=== PATIENT | male | born 1985 | race Caucasian/White ===

== ENCOUNTER 2017-11-01 21:02 | Emergency (ER) | payer OTHER ==
[~2017-11-01] VITALS: Ht 190.5 cm; Wt 102.1 kg
--- NOTE | 2017-11-01 21:23 | PHYS DOC ---
Past Medical History Past Medical History: Hypertension, Other Additional Past Medical Histor: Stent in left ureter Adult General Chief Complaint Chief Complaint: FLANK PAIN HPI HPI Patient is a 32 year old male who presents with left flank pain. Patient complains of left flank pain, fever and chills over the last 48 hours. He also had some nausea and vomiting. He had 2 episodes of emesis today. 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 He had a stent placed originally. The original stent was eventually removed and replaced again after he had an episode of fever and pain on the left. He fears that his symptoms today represent a possible recurrence of new obstructed stent. Review of Systems Review of Systems Constitutional: Denies fever or chills Eyes: Denies change in visual acuity HENT: Denies nasal congestion Respiratory: Denies cough or shortness of breath Cardiovascular: No additional information GI: Denies abdominal pain : Denies dysuria Musculoskeletal: Denies back pain or joint pain Integument: Denies rash or skin lesions Neurologic: Denies headache Endocrine: Denies polyuria All other systems were reviewed and found to be within normal limits, except as documented in this note. Current Medications Current Medications Current Medications Medications (Trade) Dose Ordered Sig/Jeferson Start Time Stop Time Status Last Admin Dose Admin Ceftriaxone Sodium 50 ml @ 100 mls/hr 1X ONCE 11/01/17 22:45 11/01/17 23:14 DC 11/01/17 22:58 100 MLS/HR Morphine Sulfate (Morphine Sulfate) 6 mg 1X ONCE 11/01/17 23:00 11/01/17 23:01 DC 11/01/17 22:58 6 MG Ondansetron HCl (Zofran) 4 mg 1X ONCE 11/01/17 22:15 11/01/17 22:16 DC 11/01/17 22:14 4 MG Sodium Chloride 1,000 ml @ 1,000 mls/hr 1X ONCE 11/01/17 21:30 11/01/17 22:29 DC 11/01/17 21:55 1,000 MLS/HR Allergies Allergies Allergies Coded Allergies Type Severity Reaction Last Updated Verified scopolamine Adverse Reaction Severe Photosensitivity 11/01/17 Yes ketamine Adverse Reaction Intermediate Nausea and Vomiting 11/01/17 Yes Physical Exam Physical Exam Constitutional: Well developed, well nourished, no acute distress, non-toxic appearance HENT: Normocephalic, atraumatic Eyes: PERRLA Neck: Normal range of motion Cardiovascular:Heart rate regular rhythm, no murmur Lungs & Thorax: Bilateral breath sounds clear to auscultation Abdomen: Bowel sounds normal, soft, no tenderness Skin: Warm, dry, no erythema Back: No tenderness, + CVA TTP on left Extremities: No tenderness Neurologic: Alert and oriented X 3 Psychologic: Affect normal Current Patient Data Vital Signs Vital Signs Date Time Temp Pulse Resp B/P (MAP) Pulse Ox O2 Delivery O2 Flow Rate FiO2 11/01/17 22:58 18 99 Room Air 11/01/17 22:19 82 148/75 (99) 97.0 11/01/17 21:10 98.1 98.1 Lab Values Laboratory Tests Test 11/01/17 21:20 11/01/17 21:40 Urine Collection Type Unknown Urine Color Yellow Urine Clarity Clear Urine pH 5.5 Urine Specific [place] >=1.030 Urine Protein 100 mg/dL (NEG-TRACE) Urine Glucose (UA) Negative mg/dL (NEG) Urine Ketones (Stick) Negative mg/dL (NEG) Urine Blood Large (NEG) Urine Nitrite Negative (NEG) Urine Bilirubin Negative (NEG) Urine Urobilinogen Dipstick 0.2 mg/dL (0.2 mg/dL) Urine Leukocyte Esterase Small (NEG) Urine RBC >40 /HPF (0-2) Urine WBC 5-10 /HPF (0-4) Urine Squamous Epithelial Cells Few /LPF Urine Bacteria Few /HPF (0-FEW) Urine Mucus Marked /LPF White Blood Count 11.3 x10^3/uL (4.0-11.0) H Red Blood Count 5.35 x10^6/uL (4.30-5.70) Hemoglobin 16.3 g/dL (13.0-17.5) Hematocrit 45.3 % (39.0-53.0) Mean Corpuscular Volume 85 fL (79-100) Mean Corpuscular Hemoglobin 30 pg (25-35) Mean Corpuscular Hemoglobin Concent 36 g/dL (31-37) Red Cell Distribution Width 13.0 % (11.5-14.5) Platelet Count 201 x10^3/uL (140-400) Neutrophils (%) (Auto) 65 % (31-73) Lymphocytes (%) (Auto) 26 % (24-48) Monocytes (%) (Auto) 5 % (0-9) Eosinophils (%) (Auto) 3 % (0-3) Basophils (%) (Auto) 1 % (0-3) Neutrophils # (Auto) 7.4 x10^3uL (1.8-7.7) Lymphocytes # (Auto) 3.0 x10^3/uL (1.0-4.8) Monocytes # (Auto) 0.5 x10^3/uL (0.0-1.1) Eosinophils # (Auto) 0.4 x10^3/uL (0.0-0.7) Basophils # (Auto) 0.1 x10^3/uL (0.0-0.2) Sodium Level 137 mmol/L (136-145) Potassium Level 3.4 mmol/L (3.5-5.1) L Chloride Level 103 mmol/L (98-107) Carbon Dioxide Level 27 mmol/L (21-32) Anion Gap 7 (6-14) Blood Urea Nitrogen 13 mg/dL (8-26) Creatinine 1.0 mg/dL (0.7-1.3) Estimated GFR (Cockcroft-Gault) 87.2 Glucose Level 89 mg/dL (70-99) Calcium Level 9.0 mg/dL (8.5-10.1) Laboratory Tests 11/01/17 21:40 Laboratory Tests 11/01/17 21:40 EKG EKG [] Radiology/Procedures Radiology/Procedures CT ABDOMEN PELVIS WO CONTRAST Clinical Indication: LEFT FLANK PAIN; HX URETERAL STENT, hematuria. Comparison: None. Technique: Helical CT imaging of the abdomen and pelvis is performed without IV or oral contrast. Findings: Mild atelectasis in the bilateral lower lobes. Cardiac size normal. Cholecystectomy. The liver, spleen, pancreas, adrenal glands, and abdominal aorta caliber are normal. There is right kidney is normal. There is left ureteral stent in appropriate position. There is periureteral stranding. The left renal pelvis is dilated. No ureteral calculus is identified along the stent. Stomach unremarkable. Mesenteric lymph nodes are upper limits of normal in size. No dilated small bowel. Appendectomy. No colon wall thickening. Urinary bladder is nearly completely decompressed. Prostate size normal. No pelvic free fluid. Mild grade 1 retrolisthesis of L5 on S1. There is disc osteophyte complex of L5/S1 and facet hypertrophy that produces moderate to severe central canal stenosis. IMPRESSION: 1. Left ureteral stent is in appropriate position. There is mild left hydronephrosis. There is periureteral stranding. No ureteral calculus. 2. Urinary bladder is mostly decompressed, limiting evaluation. 3. Degenerative spondylosis of L5/S1. Course & Med Decision Making Course & Med Decision Making Pertinent Labs and Imaging studies reviewed. (See chart for details) 21:20: Patient is seen and examined. Will give medications for pain and nausea. IV fluid bolus. CBC and BMP. CT scan without contrast. 22:45: All results are reviewed and discussed with the patient. He does have mild hydro-on the left in the area of concern. The stent is in appropriate position. He does have a urinary tract infection. White blood cell count is mildly elevated but his creatinine is still normal range. I discussed options of admission and seeing the urologist at this hospital versus follow-up with his primary urologist in the patient strongly desires not to be admitted this evening. He is given a dose of Rocephin. He will be discharged home on Levaquin. He will be given Zofran and [place] for symptom relief. The patient feels confident that he can follow-up with his urologist this week. Otherwise, he will return to the emergency department. Opiate precautions are discussed and all of his questions are answered. He is not driving home this evening. He is accompanied by a friend. Dragon Disclaimer Dragon Disclaimer This electronic medical record was generated, in whole or in part, using a voice recognition dictation system. Departure Departure Referrals: ROBIN HAMMONDS MD (PCP) Scripts Ondansetron Hcl (ONDANSETRON HCL) 4 Mg Tablet 4 MG PO TID PRN for NAUSEA/VOMITING, #10 TAB Prov: THU SANDOVAL DO 11/01/17 Levofloxacin (LEVAQUIN) 500 Mg Tablet 500 MG PO DAILY for 7 Days, #7 TAB Prov: THU SANDOVAL DO 11/01/17 Hydrocodone/Apap 5-325 (NORCO 5-325 TABLET) 1 Each Tablet 1-2 EACH PO PRN Q6HRS PRN for severe pain, #24 as needed for pain Prov: THU SANDOVAL DO 11/01/17 THU SANDOVAL DO Nov 01, 2017 21:23
[2017-11-01] MEDS ORDERED: IV NORMAL SALINE 1000ML BAG 1,000 ML IV ONE (21:30)
--- NOTE | 2017-11-01 22:00 | RAD ---
PQRS Compliance Statement: One or more of the following individualized dose reduction techniques were utilized for this examination: 1. Automated exposure control 2. Adjustment of the mA and/or kV according to patient size 3. Use of iterative reconstruction technique CT ABDOMEN PELVIS WO CONTRAST Clinical Indication: LEFT FLANK PAIN; HX URETERAL STENT, hematuria. Comparison: None. Technique: Helical CT imaging of the abdomen and pelvis is performed without IV or oral contrast. Findings: Mild atelectasis in the bilateral lower lobes. Cardiac size normal. Cholecystectomy. The liver, spleen, pancreas, adrenal glands, and abdominal aorta caliber are normal. There is right kidney is normal. There is left ureteral stent in appropriate position. There is periureteral stranding. The left renal pelvis is dilated. No ureteral calculus is identified along the stent. Stomach unremarkable. Mesenteric lymph nodes are upper limits of normal in size. No dilated small bowel. Appendectomy. No colon wall thickening. Urinary bladder is nearly completely decompressed. Prostate size normal. No pelvic free fluid. Mild grade 1 retrolisthesis of L5 on S1. There is disc osteophyte complex of L5/S1 and facet hypertrophy that produces moderate to severe central canal stenosis. IMPRESSION: 1. Left ureteral stent is in appropriate position. There is mild left hydronephrosis. There is periureteral stranding. No ureteral calculus. 2. Urinary bladder is mostly decompressed, limiting evaluation. 3. Degenerative spondylosis of L5/S1. Electronically signed by: Ismael Felix MD (11/01/2017 9:56 PM) [id number]
[2017-11-01 22:05] LABS: BASO # 0.1 x10^3/uL (0.0-0.2); BASO % 1 % (0-3); EOS # 0.4 x10^3/uL (0.0-0.7); EOS % 3 % (0-3); HEMATOCRIT 45.3 % (39.0-53.0); HEMOGLOBIN 16.3 g/dL (13.0-17.5); LYMPH % 26 % (24-48); MEAN CORPUSCULAR HEMOGLOBIN 30 pg (25-35); MEAN CORPUSCULAR HGB CONC 36 g/dL (31-37); MEAN CORPUSCULAR VOLUME 85 fL (79-100); MONO # 0.5 x10^3/uL (0.0-1.1); MONO % 5 % (0-9); NEUT # 7.4 x10^3uL (1.8-7.7); NEUT % 65 % (31-73); PLATELET COUNT 201 x10^3/uL (140-400); RED BLOOD COUNT 5.35 x10^6/uL (4.30-5.70); WHITE BLOOD COUNT 11.3 x10^3/uL (4.0-11.0)
[2017-11-01 22:07] LABS: BILIRUBIN,URINE NEGATIVE (NEG); CLARITY,URINE CLEAR; COLOR,URINE YELLOW; NITRITE,URINE NEGATIVE (NEG); PH,URINE 5.5; PROTEIN,URINE 100 mg/dL (NEG-TRACE); UROBILINOGEN,URINE 0.2 mg/dL (0.2 mg/dL)
[2017-11-01] MEDS ORDERED: MORPHINE SULFATE 10 MG/ML VIAL. IV ONE ×2 (22:15→23:00)
[2017-11-01] MEDS ORDERED: ONDANSETRON PF 4 MG/2 ML VIAL. IV ONE (22:15)
[2017-11-01 22:17] LABS: GFR 87.2; POTASSIUM 3.4 mmol/L (3.5-5.1)
[2017-11-01 22:17] LABS: BACTERIA,URINE FEW /HPF (0-FEW); RBC,URINE >40 /HPF (0-2); SQUAMOUS EPITHELIAL CELL,UR FEW /LPF
[2017-11-01 22:19] VITALS: BP 148/75
[2017-11-01] MEDS ORDERED: LEVO500T59 PO (23:11)
[2017-11-01] MEDS ORDERED: HYDR-971 PO (23:11)
[2017-11-01] MEDS ORDERED: ONDA4TAB11 PO (23:11)
== END 2017-11-01 23:38 | disposition home or self-care (01) ==
LOC: ER 21:02
DX: N39.0 Urinary tract infection, site not specified (principal); R11.2 Nausea with vomiting, unspecified; N13.30 Unspecified hydronephrosis; M47.897 Other spondylosis, lumbosacral region; I10 Essential (primary) hypertension; Z88.4 Allergy status to anesthetic agent; Z88.8 Allergy status to other drugs, medicaments and biological substances
CPT/HCPCS: 36415; 74176; 80048; 81001; 85025; 87086; 96361; 96365; 96375; 96376; 99285; J0690; J2270; J2405; J7030

== ENCOUNTER 2017-12-03 13:29 | Emergency (ER) | payer OTHER ==
[~2017-12-03 13:29] MED LIST: HYDR-971 PO; LEVO500T59 PO; ONDA4TAB11 PO
== END 2017-12-03 14:40 | disposition left against medical advice (07) ==
LOC: ER 13:29
DX: M25.551 Pain in right hip (principal); Z53.21 Procedure and treatment not carried out due to patient leaving prior to being seen by health care provider

== ENCOUNTER 2018-01-07 15:22 | Emergency (ER) | payer OTHER ==
[~2018-01-07] VITALS: Ht 190.5 cm; Wt 102.1 kg
[2018-01-07 15:54] LABS: BILIRUBIN,URINE NEGATIVE (NEG); CLARITY,URINE CLOUDY; COLOR,URINE AMBER; NITRITE,URINE NEGATIVE (NEG); PROTEIN,URINE 100 mg/dL (NEG-TRACE); UROBILINOGEN,URINE 0.2 mg/dL (0.2 mg/dL)
[2018-01-07 16:03] LABS: BACTERIA,URINE 0 /HPF (0-FEW); RBC,URINE TNTC /HPF (0-2); WBC,URINE 20-40 /HPF (0-4)
[2018-01-07] MEDS: IV NORMAL SALINE 1000ML BAG 1,000 ML IV ONE (16:11)
[2018-01-07] MEDS: PROCHLORPERAZINE 10 MG/2 ML VIAL. IV ONE (16:13)
[2018-01-07] MEDS: MORPHINE SULFATE 10 MG/ML VIAL. IV ONE (16:17)
[2018-01-07 16:22] LABS: BASO % 0 % (0-3); EOS # 0.4 x10^3/uL (0.0-0.7); EOS % 3 % (0-3); HEMATOCRIT 46.2 % (39.0-53.0); HEMOGLOBIN 16.5 g/dL (13.0-17.5); LYMPH # 2.8 x10^3/uL (1.0-4.8); LYMPH % 22 % (24-48); MEAN CORPUSCULAR HEMOGLOBIN 31 pg (25-35); MEAN CORPUSCULAR HGB CONC 36 g/dL (31-37); MEAN CORPUSCULAR VOLUME 86 fL (79-100); MONO # 0.6 x10^3/uL (0.0-1.1); MONO % 5 % (0-9); NEUT # 8.7 x10^3uL (1.8-7.7); NEUT % 70 % (31-73); PLATELET COUNT 209 x10^3/uL (140-400); RED BLOOD COUNT 5.35 x10^6/uL (4.30-5.70); WHITE BLOOD COUNT 12.5 x10^3/uL (4.0-11.0)
--- NOTE | 2018-01-07 16:22 | PHYS DOC ---
Past Medical History Past Medical History: Depression, Hypertension, Other Additional Past Medical Histor: Stent in left ureter Past Surgical History: Appendectomy, Cholecystectomy, Tonsillectomy, Other Additional Past Surgical Histo: RIGHT SHOULDER,BILATERAL KNEES, Alcohol Use: Occasionally Drug Use: None Adult General Chief Complaint Chief Complaint: FLANK PAIN HPI HPI Patient is a 32 year old male with history of hypertension, depression, who presents today with complaints of 7 out of 10 sharp constant left flank pain for the last 2 days. Patient states he has history of ureter stricture, he states he had initial stents placed a couple years ago, then they were removed the stricture reoccurred, and they were replaced. He states he has had the current stent since May 2017. He states he follows up with the urologist at [facility]. Patient denies any nausea vomiting. She states she had subjective fevers at home. Review of Systems Review of Systems Constitutional: Denies fever or chills [] Eyes: Denies change in visual acuity, redness, or eye pain [] HENT: Denies nasal congestion or sore throat [] Respiratory: Denies cough or shortness of breath [] Cardiovascular: No additional information not addressed in HPI [] GI: Denies abdominal pain, nausea, vomiting, bloody stools or diarrhea [] : Reports left flank pain. Denies dysuria or hematuria [] Musculoskeletal: Denies back pain or joint pain [] Integument: Denies rash or skin lesions [] Neurologic: Denies headache, focal weakness or sensory changes [] All other systems were reviewed and found to be within normal limits, except as documented in this note. Current Medications Current Medications Current Medications Medications (Trade) Dose Ordered Sig/Jeferson Start Time Stop Time Status Last Admin Dose Admin Levofloxacin/ Dextrose 100 ml @ 100 mls/hr 1X ONCE 01/07/18 17:00 01/07/18 17:59 01/07/18 17:33 100 MLS/HR Morphine Sulfate (Morphine Sulfate) 5 mg 1X ONCE 01/07/18 16:30 01/07/18 16:31 DC 01/07/18 16:17 5 MG Prochlorperazine Edisylate (Compazine) 10 mg 1X ONCE 01/07/18 16:30 01/07/18 16:31 DC 01/07/18 16:13 10 MG Sodium Chloride 1,000 ml @ 1,000 mls/hr 1X ONCE 01/07/18 16:30 01/07/18 17:29 DC 01/07/18 16:11 1,000 MLS/HR Allergies Allergies Allergies Coded Allergies Type Severity Reaction Last Updated Verified scopolamine Adverse Reaction Severe Photosensitivity 11/01/17 Yes ketamine Adverse Reaction Intermediate Nausea and Vomiting 11/01/17 Yes Physical Exam Physical Exam Constitutional: Well developed, well nourished, no acute distress, non-toxic appearance. [] HENT: Normocephalic, atraumatic, bilateral external ears normal, oropharynx moist, no oral exudates, nose normal. [] Eyes: PERRLA, EOMI, conjunctiva normal, no discharge. [] Neck: Normal range of motion, no tenderness, supple, no stridor. [] Cardiovascular:Heart rate regular rhythm, no murmur [] Lungs & Thorax: Bilateral breath sounds clear to auscultation [] Abdomen: Bowel sounds normal, soft, no tenderness, no masses, no pulsatile masses. [] Skin: Warm, dry, no erythema, no rash. [] Back: No tenderness, mild left CVA tenderness. [] Extremities: No tenderness, no cyanosis, no clubbing, ROM intact, no edema. [] Neurologic: Alert and oriented X 3, normal motor function, normal sensory function, no focal deficits noted. [] Psychologic: Affect normal, judgement normal, mood normal. [] Current Patient Data Vital Signs Vital Signs Date Time Temp Pulse Resp B/P (MAP) Pulse Ox O2 Delivery O2 Flow Rate FiO2 01/07/18 16:17 21 96 Room Air 01/07/18 15:30 98.7 108 147/83 (104) 98.7 Lab Values Laboratory Tests Test 01/07/18 15:42 01/07/18 16:08 Urine Collection Type Unknown Urine Color [place] Urine Clarity Cloudy Urine pH 5.0 Urine Specific [place] 1.025 Urine Protein 100 mg/dL (NEG-TRACE) Urine Glucose (UA) Negative mg/dL (NEG) Urine Ketones (Stick) Negative mg/dL (NEG) Urine Blood Large (NEG) Urine Nitrite Negative (NEG) Urine Bilirubin Negative (NEG) Urine Urobilinogen Dipstick 0.2 mg/dL (0.2 mg/dL) Urine Leukocyte Esterase Moderate (NEG) Urine RBC Tntc /HPF (0-2) Urine WBC 20-40 /HPF (0-4) Urine Bacteria 0 /HPF (0-FEW) Urine Mucus Marked /LPF Urine Opiates Screen Neg (NEG) Urine Methadone Screen Neg (NEG) Urine Barbiturates Neg (NEG) Urine Phencyclidine Screen Neg (NEG) Urine Amphetamine/Methamphetamine Neg (NEG) Urine Benzodiazepines Screen Neg (NEG) Urine Cocaine Screen Neg (NEG) Urine Cannabinoids Screen Neg (NEG) Urine Ethyl Alcohol Neg (NEG) White Blood Count 12.5 x10^3/uL (4.0-11.0) H Red Blood Count 5.35 x10^6/uL (4.30-5.70) Hemoglobin 16.5 g/dL (13.0-17.5) Hematocrit 46.2 % (39.0-53.0) Mean Corpuscular Volume 86 fL (79-100) Mean Corpuscular Hemoglobin 31 pg (25-35) Mean Corpuscular Hemoglobin Concent 36 g/dL (31-37) Red Cell Distribution Width 13.0 % (11.5-14.5) Platelet Count 209 x10^3/uL (140-400) Neutrophils (%) (Auto) 70 % (31-73) Lymphocytes (%) (Auto) 22 % (24-48) L Monocytes (%) (Auto) 5 % (0-9) Eosinophils (%) (Auto) 3 % (0-3) Basophils (%) (Auto) 0 % (0-3) Neutrophils # (Auto) 8.7 x10^3uL (1.8-7.7) H Lymphocytes # (Auto) 2.8 x10^3/uL (1.0-4.8) Monocytes # (Auto) 0.6 x10^3/uL (0.0-1.1) Eosinophils # (Auto) 0.4 x10^3/uL (0.0-0.7) Basophils # (Auto) 0.0 x10^3/uL (0.0-0.2) Sodium Level 140 mmol/L (136-145) Potassium Level 3.9 mmol/L (3.5-5.1) Chloride Level 104 mmol/L (98-107) Carbon Dioxide Level 24 mmol/L (21-32) Anion Gap 12 (6-14) Blood Urea Nitrogen 14 mg/dL (8-26) Creatinine 1.0 mg/dL (0.7-1.3) Estimated GFR (Cockcroft-Gault) 87.2 BUN/Creatinine Ratio 14 (6-20) Glucose Level 103 mg/dL (70-99) H Calcium Level 9.5 mg/dL (8.5-10.1) Total Bilirubin 0.3 mg/dL (0.2-1.0) Aspartate Amino Transferase (AST) 12 U/L (15-37) L Alanine Aminotransferase (ALT) 35 U/L (16-63) Alkaline Phosphatase 53 U/L (46-116) Total Protein 7.7 g/dL (6.4-8.2) Albumin 4.1 g/dL (3.4-5.0) Albumin/Globulin Ratio 1.1 (1.0-1.7) Laboratory Tests 01/07/18 16:08 Laboratory Tests 01/07/18 16:08 EKG EKG [] Radiology/Procedures Radiology/Procedures []PROCEDURE: CT ABDOMEN PELVIS WO CONTRAST EXAM: Abdomen and pelvis CT without intravenous contrast. HISTORY: Left flank pain. Hematuria. TECHNIQUE: Computed tomographic images of the abdomen and pelvis were obtained without contrast. Multiplanar reformatting was performed. *One or more of the following individualized dose reduction techniques were utilized for this examination: 1. Automated exposure control. 2. Adjustment of the mA and/or kV according to patient size. 3. Use of iterative reconstruction technique. COMPARISON: 11/01/2017. FINDINGS: Evaluation of the lower thorax demonstrates posterior dependent and basilar atelectasis. No hepatic lesion is seen. The gallbladder is surgically absent. The pancreas is unremarkable. The spleen is upper normal in size. The adrenal glands are unremarkable. There is slight increased moderate left hydronephrosis. There is a nephroureteral stent in expected position. There is slight ureteral stranding. No obstructing lesion is seen along the course of the stent. There is no contralateral nephroureterolithiasis. The appendix is surgically absent. No abnormally thickened or dilated loop of bowel is seen. There is no lymphadenopathy. There is no suspicious osseous lesion. There is a transitional lumbosacral segment. This considered a partially lumbarized S1 segment for this dictation. Based on this numbering system, there is a broad-based posterior central disc protrusion superimposed on a disc bulge and osteophytosis at L5-S1. This results in bilateral foraminal and central canal stenosis. IMPRESSION: 1. Slight interval increase in moderate left hydronephrosis. There is a left nephroureteral stent in expected position, with persistent periureteral stranding. No obstructing lesion is seen. 2. Degenerative change at L5-S1, with associated stenosis. Electronically signed by: Alla Martinez MD (01/07/2018 4:33 PM) [place] [id number] DICTATED and SIGNED BY: ALLA MARTINEZ MD DATE: 01/07/18 1629 Course & Med Decision Making Course & Med Decision Making Pertinent Labs and Imaging studies reviewed. (See chart for details) This is a 32-year-old male who presents today complaining of left flank pain. Patient has history of ureter stricture with stents since May 2017. Current symptoms began 2 days ago. Urine analysis is noted for large amount of leukocytes and blood. CBC with a WBC of 12.5, CMP with normal kidney function. Temperature on arrival to the ED was 98.7. CT of the abdomen and pelvic was noted for slight interval increase in moderate left hydronephrosis, stent signing the right position, this persistent. There is persistent periureteral stranding. Patient was given Levaquin in the ED he prefers to f/u with his urologist vs admission. D/c with Levaquin. Dragon Disclaimer Dragon Disclaimer This electronic medical record was generated, in whole or in part, using a voice recognition dictation system. Departure Departure Impression: Primary Impression: Urinary tract infection Additional Impression: Hydronephrosis Disposition: 01 HOME, SELF-CARE Condition: STABLE Referrals: ROBIN HAMMONDS MD (PCP) Follow-up with your urologist as soon as possible Patient Instructions: Urinary Tract Infection Additional Instructions: You have urinary tract infection, we put you on antibiotics, ensure you complete them. Follow-up with the urologist as soon as he can. Come back to the emergency room at any point symptoms worsen. Scripts Prochlorperazine Maleate (Compazine) 10 Mg Tablet 10 MG PO TID PRN for NAUSEA, #20 TAB Prov: MUTUNGA,JONATHAN MANAGER PROPOSAL 01/07/18 Hydrocodone/Apap 5-325 (NORCO 5-325 TABLET) 1 Each Tablet 1-2 TAB PO Q6HRS PRN for PAIN, #10 TAB Prov: MUTUNGA,JONATHAN MANAGER PROPOSAL 01/07/18 Levofloxacin (LEVAQUIN) 500 Mg Tablet 1 TAB PO DAILY, #7 TAB Prov: JONATHAN BLACKBURN APRN 01/07/18 Problem Qualifiers Primary Impression: Urinary tract infection Urinary tract infection type: acute cystitis Hematuria presence: without hematuria Qualified Codes: N30.00 - Acute cystitis without hematuria Additional Impression: Hydronephrosis Hydronephrosis type: unspecified Qualified Codes: N13.30 - Unspecified hydronephrosis JONATHAN BLACKBURN APRN Jan 07, 2018 16:22
[2018-01-07 16:26] LABS: BARBITURATES NEG (NEG); BENZODIAZEPINES NEG (NEG); CANNABINOIDS NEG (NEG); COCAINE NEG (NEG); METHADONE NEG (NEG); OPIATES NEG (NEG); PHENCYCLIDINE NEG (NEG)
[2018-01-07 16:27] LABS: AMPHETAMINE/METHAMPHETAMINE NEG (NEG)
[2018-01-07 16:31] LABS: CALCIUM 9.5 mg/dL (8.5-10.1); GFR 87.2; POTASSIUM 3.9 mmol/L (3.5-5.1)
[2018-01-07 16:37] LABS: ALBUMIN 4.1 g/dL (3.4-5.0); ALBUMIN/GLOBULIN RATIO 1.1 (1.0-1.7); TOTAL BILIRUBIN 0.3 mg/dL (0.2-1.0); TOTAL PROTEIN 7.7 g/dL (6.4-8.2)
--- NOTE | 2018-01-07 16:37 | RAD ---
EXAM: Abdomen and pelvis CT without intravenous contrast. HISTORY: Left flank pain. Hematuria. TECHNIQUE: Computed tomographic images of the abdomen and pelvis were obtained without contrast. Multiplanar reformatting was performed. *One or more of the following individualized dose reduction techniques were utilized for this examination: 1. Automated exposure control. 2. Adjustment of the mA and/or kV according to patient size. 3. Use of iterative reconstruction technique. COMPARISON: 11/01/2017. FINDINGS: Evaluation of the lower thorax demonstrates posterior dependent and basilar atelectasis. No hepatic lesion is seen. The gallbladder is surgically absent. The pancreas is unremarkable. The spleen is upper normal in size. The adrenal glands are unremarkable. There is slight increased moderate left hydronephrosis. There is a nephroureteral stent in expected position. There is slight ureteral stranding. No obstructing lesion is seen along the course of the stent. There is no contralateral nephroureterolithiasis. The appendix is surgically absent. No abnormally thickened or dilated loop of bowel is seen. There is no lymphadenopathy. There is no suspicious osseous lesion. There is a transitional lumbosacral segment. This considered a partially lumbarized S1 segment for this dictation. Based on this numbering system, there is a broad-based posterior central disc protrusion superimposed on a disc bulge and osteophytosis at L5-S1. This results in bilateral foraminal and central canal stenosis. IMPRESSION: 1. Slight interval increase in moderate left hydronephrosis. There is a left nephroureteral stent in expected position, with persistent periureteral stranding. No obstructing lesion is seen. 2. Degenerative change at L5-S1, with associated stenosis. Electronically signed by: Alla Martinez MD (01/07/2018 4:33 PM) [place] [id number]
[2018-01-07 18:00] VITALS: BP 125/73
[2018-01-07] MEDS ORDERED: PROC10TA57 PO (18:00)
[2018-01-07] MEDS ORDERED: HYDR-971 PO (18:00)
[2018-01-07] MEDS ORDERED: LEVO500T59 PO (18:00)
== END 2018-01-07 18:24 | disposition home or self-care (01) ==
LOC: ER 15:22
DX: N30.00 Acute cystitis without hematuria (principal); N13.30 Unspecified hydronephrosis; M48.07 Spinal stenosis, lumbosacral region; I10 Essential (primary) hypertension; Z90.49 Acquired absence of other specified parts of digestive tract; Z90.89 Acquired absence of other organs; Z96.0 Presence of urogenital implants; Z88.4 Allergy status to anesthetic agent; Z88.8 Allergy status to other drugs, medicaments and biological substances
CPT/HCPCS: 36415; 74176; 80053; 80307; 81001; 85025; 87086; 96365; 96375; 99285; J0780; J1956; J2270; J7030; G0479

== ENCOUNTER 2018-06-25 22:17 | Emergency (ER) | payer OTHER ==
[~2018-06-25] VITALS: Ht 190.5 cm; Wt 99.8 kg
[~2018-06-25 22:17] MED LIST changes: +HYDR-3164 PO; -HYDR-971 PO; +PROC10TA57 PO
[2018-06-25 22:59] LABS: BASO % 0 % (0-3); EOS # 0.3 x10^3/uL (0.0-0.7); EOS % 2 % (0-3); HEMATOCRIT 47.6 % (39.0-53.0); HEMOGLOBIN 16.3 g/dL (13.0-17.5); LYMPH # 2.5 x10^3/uL (1.0-4.8); LYMPH % 21 % (24-48); MEAN CORPUSCULAR HEMOGLOBIN 29 pg (25-35); MEAN CORPUSCULAR HGB CONC 34 g/dL (31-37); MEAN CORPUSCULAR VOLUME 84 fL (79-100); MONO # 0.7 x10^3/uL (0.0-1.1); MONO % 6 % (0-9); NEUT # 8.3 x10^3uL (1.8-7.7); NEUT % 70 % (31-73); PLATELET COUNT 245 x10^3/uL (140-400); RED BLOOD COUNT 5.64 x10^6/uL (4.30-5.70); RED CELL DISTRIBUTION WIDTH 13.5 % (11.5-14.5); WHITE BLOOD COUNT 11.8 x10^3/uL (4.0-11.0)
[2018-06-25] MEDS ORDERED: IV NORMAL SALINE 1000ML BAG 1,000 ML IV ONE (23:00)
[2018-06-25] MEDS ORDERED: ONDANSETRON PF 4 MG/2 ML VIAL. IV ONE (23:00)
[2018-06-25] MEDS ORDERED: MORPHINE SULFATE 4 MG/ML VIAL. IV ONE (23:00)
[2018-06-25 23:01] LABS: BILIRUBIN,URINE NEGATIVE (NEG); CLARITY,URINE CLEAR; COLOR,URINE YELLOW; NITRITE,URINE NEGATIVE (NEG); PH,URINE 5.5; PROTEIN,URINE NEGATIVE (NEG-TRACE); UROBILINOGEN,URINE 0.2 mg/dL (0.2 mg/dL)
[2018-06-25 23:11] LABS: CALCIUM 8.9 mg/dL (8.5-10.1); CREATININE 0.9 mg/dL (0.7-1.3); GFR 97.8; POTASSIUM 3.8 mmol/L (3.5-5.1)
[2018-06-25 23:15] LABS: PROTHROMBIN TIME PATIENT 13.3 SEC (11.7-14.0)
[2018-06-25 23:15] LABS: BACTERIA,URINE FEW /HPF (0-FEW); RBC,URINE 0 /HPF (0-2); SQUAMOUS EPITHELIAL CELL,UR OCC /LPF
[2018-06-25 23:17] LABS: ALBUMIN 3.8 g/dL (3.4-5.0); TOTAL BILIRUBIN 0.4 mg/dL (0.2-1.0); TOTAL PROTEIN 7.5 g/dL (6.4-8.2)
--- NOTE | 2018-06-25 23:22 | PHYS DOC ---
Past Medical History Past Medical History: Depression, Hypertension, Other Additional Past Medical Histor: Stent in left ureter Past Surgical History: Appendectomy, Cholecystectomy, Tonsillectomy, Other Additional Past Surgical Histo: RIGHT SHOULDER,BILATERAL KNEES, PYLOPLASTY Alcohol Use: Occasionally Drug Use: None Adult General Chief Complaint Chief Complaint: FLANK PAIN [facility] HPI Patient is a 33 year old m p/w left flank pain onset yesterday apparenlty had pyeloplasty on 05/31, then had stent which was removed thursday. Was doing okay on Thursday and then pain began to come up yesterday. He did have some oral pain medication after surgery but he has run out of that it was only a short course. Patient has no fever also noticed some blood in the urine and was worried about that so came to the emergency room for evaluation [facility] Review of Systems Review of Systems Constitutional: Denies fever or chills [] Eyes: Denies change in visual acuity, redness, or eye pain [] HENT: Denies nasal congestion or sore throat [] Respiratory: Denies cough or shortness of breath [] Cardiovascular: No additional information not addressed in HPI [] GI: Denies abdominal pain, nausea, vomiting, bloody stools or diarrhea [] : Denies dysuria or hematuria [] Musculoskeletal: Denies back pain or joint pain [] Integument: Denies rash or skin lesions [] Neurologic: Denies headache, focal weakness or sensory changes [] Endocrine: Denies polyuria or polydipsia [] All other systems were reviewed and found to be within normal limits, except as documented in this note. Current Medications Current Medications Current Medications Medications (Trade) Dose Ordered Sig/[facility] Start Time Stop Time Status Last Admin Dose Admin Fentanyl Citrate (Fentanyl 2ml Vial) 50 mcg 1X ONCE 06/25/18 23:55 06/25/18 23:56 DC 06/25/18 23:54 50 MCG Ketorolac Tromethamine (Toradol 15mg Vial) 15 mg 1X ONCE 06/25/18 23:55 06/25/18 23:56 DC 06/25/18 23:53 15 MG Morphine Sulfate (Morphine Sulfate) 4 mg 1X ONCE 06/25/18 23:00 06/25/18 23:01 DC 06/25/18 23:07 4 MG Ondansetron HCl (Zofran) 4 mg 1X ONCE 06/25/18 23:00 06/25/18 23:01 DC 06/25/18 23:06 4 MG Sodium Chloride 1,000 ml @ 1,000 mls/hr 1X ONCE 06/25/18 23:00 06/25/18 23:59 DC 06/25/18 23:06 1,000 MLS/HR Allergies Allergies Allergies Coded Allergies Type Severity Reaction Last Updated Verified scopolamine Adverse Reaction Severe Photosensitivity 11/01/17 Yes ketamine Adverse Reaction Intermediate Nausea and Vomiting 11/01/17 Yes Physical Exam Physical Exam Constitutional: Well developed, well nourished, no acute distress, non-toxic appearance. [] HENT: Normocephalic, atraumatic, bilateral external ears normal, oropharynx moist, no oral exudates, nose normal. [] Eyes: PERRLA, EOMI, conjunctiva normal, no discharge. [] Neck: Normal range of motion, no tenderness, supple, no stridor. [] normal respiratory effort no increased work of breathing. Abdomen: Bowel sounds normal, soft, no tenderness, no masses, no pulsatile masses. [] back there is left cva ttp noted. Extremities: No tenderness, no cyanosis, no clubbing, ROM intact, no edema. [] Neurologic: Alert and oriented X 3, normal motor function, normal sensory function, no focal deficits noted. [] Current Patient Data Vital Signs Vital Signs Date Time Temp Pulse Resp B/P (MAP) Pulse Ox O2 Delivery O2 Flow Rate FiO2 06/25/18 23:54 16 96 Room Air 06/25/18 23:45 75 149/83 (105) 06/25/18 22:25 98.1 98.1 Lab Values Laboratory Tests Test 06/25/18 22:24 06/25/18 22:50 Urine Collection Type Unknown Urine Color Yellow Urine Clarity Clear Urine pH 5.5 Urine Specific [place] >=1.030 Urine Protein Negative mg/dL (NEG-TRACE) Urine Glucose (UA) Negative mg/dL (NEG) Urine Ketones (Stick) Negative mg/dL (NEG) Urine Blood Negative (NEG) Urine Nitrite Negative (NEG) Urine Bilirubin Negative (NEG) Urine Urobilinogen Dipstick 0.2 mg/dL (0.2 mg/dL) Urine Leukocyte Esterase Negative (NEG) Urine RBC 0 /HPF (0-2) Urine WBC 5-10 /HPF (0-4) Urine Squamous Epithelial Cells Occ /LPF Urine Bacteria Few /HPF (0-FEW) Urine Mucus Marked /LPF White Blood Count 11.8 x10^3/uL (4.0-11.0) H Red Blood Count 5.64 x10^6/uL (4.30-5.70) Hemoglobin 16.3 g/dL (13.0-17.5) Hematocrit 47.6 % (39.0-53.0) Mean Corpuscular Volume 84 fL (79-100) Mean Corpuscular Hemoglobin 29 pg (25-35) Mean Corpuscular Hemoglobin Concent 34 g/dL (31-37) Red Cell Distribution Width 13.5 % (11.5-14.5) Platelet Count 245 x10^3/uL (140-400) Neutrophils (%) (Auto) 70 % (31-73) Lymphocytes (%) (Auto) 21 % (24-48) L Monocytes (%) (Auto) 6 % (0-9) Eosinophils (%) (Auto) 2 % (0-3) Basophils (%) (Auto) 0 % (0-3) Neutrophils # (Auto) 8.3 x10^3uL (1.8-7.7) H Lymphocytes # (Auto) 2.5 x10^3/uL (1.0-4.8) Monocytes # (Auto) 0.7 x10^3/uL (0.0-1.1) Eosinophils # (Auto) 0.3 x10^3/uL (0.0-0.7) Basophils # (Auto) 0.0 x10^3/uL (0.0-0.2) Prothrombin Time 13.3 SEC (11.7-14.0) Prothrombin Time INR 1.0 (0.8-1.1) Sodium Level 139 mmol/L (136-145) Potassium Level 3.8 mmol/L (3.5-5.1) Chloride Level 102 mmol/L (98-107) Carbon Dioxide Level 27 mmol/L (21-32) Anion Gap 10 (6-14) Blood Urea Nitrogen 12 mg/dL (8-26) Creatinine 0.9 mg/dL (0.7-1.3) Estimated GFR (Cockcroft-Gault) 97.8 BUN/Creatinine Ratio 13 (6-20) Glucose Level 106 mg/dL (70-99) H Calcium Level 8.9 mg/dL (8.5-10.1) Total Bilirubin 0.4 mg/dL (0.2-1.0) Aspartate Amino Transferase (AST) 13 U/L (15-37) L Alanine Aminotransferase (ALT) 34 U/L (16-63) Alkaline Phosphatase 55 U/L (46-116) Total Protein 7.5 g/dL (6.4-8.2) Albumin 3.8 g/dL (3.4-5.0) Albumin/Globulin Ratio 1.0 (1.0-1.7) Laboratory Tests 06/25/18 22:50 Laboratory Tests 06/25/18 22:50 EKG EKG [] Radiology/Procedures Radiology/Procedures [] Impressions: Impression: 1. No focal retroperitoneal hematoma is identified. There is [id number] left hydronephrosis, internal density somewhat complex and there could be component of blood products.. There are 3 small calculi near the left ureteropelvic junction. 2. There is transitional anatomy of the lumbar spine, large posterior disc osteophyte complex at what is considered L5-S1 contributing to moderate spinal stenosis and right greater than left neural foramina compromise. Electronically signed by: Polo Noriega MD (06/25/2018 11:29 PM) [facility] DICTATED and SIGNED BY: POLO NORIEGA MD DATE: 06/25/18 5353 Course & Med Decision Making Course & Med Decision Making Pertinent Labs and Imaging studies reviewed. (See chart for details) []33-year-old male who was approximately 1 months status post a ureteral surgery apparently had what sounds to me like a ureteral stricture he had a pyeloplasty. He had a ureteral stent that was removed 3 days ago began to have increasing left flank pain with some hematuria in the emergency room we did extensive workup 5-10 white blood cells in the urine creatinine normal peripheral white blood count normal CT scan noted above no obvious abnormality possibly some faint stranding around the ureter antibiotics were provided given this finding as well as the UA. In addition pain control was given I think that is probably his main issue at this time he may be having some ureteral spasm. Advised follow-up with the primary surgeon in the next 2-3 days otherwise come back to the emergency room immediately for fever or increasing pain or any other concerns he understands. small stones unlikely to be symptomatic, pt notified of them howeve. compared to study from january the hydro appears smaller to me. Dragon Disclaimer Dragon Disclaimer This electronic medical record was generated, in whole or in part, using a voice recognition dictation system. Departure Departure Impression: Primary Impression: Hydronephrosis Additional Impression: Urinary tract infection Disposition: HOME, SELF-CARE Condition: IMPROVED Referrals: ROBIN HAMMONDS MD (PCP) Scripts Hydrocodone/Apap 5-325 (NORCO 5-325 TABLET) 1 Each Tablet 1-2 EACH PO PRN Q6HRS PRN for PAIN, #20 as needed for pain Prov: ASA MCBRIDE MD 06/25/18 Cephalexin (CEPHALEXIN) 500 Mg Capsule 1 CAP PO QID, #40 CAP Prov: ASA MCBRIDE MD 06/25/18 Problem Qualifiers ASA MCBRIDE MD Jun 25, 2018 23:22
--- NOTE | 2018-06-25 23:32 | RAD ---
CT Abdomen and Pelvis without contrast History: Recent ureteral surgery, left pain Technique: Noncontrast CT imaging was performed of the abdomen and pelvis. Multiplanar images are reviewed. Exposure: One or more of the following individualized dose reduction techniques were utilized for this examination: 1. Automated exposure control 2. Adjustment of the mA and/or kV according to patient size 3. Use of iterative reconstruction technique. Comparison: January 07, 2018 Findings: Previously seen left ureteral stent has been removed. There is persistent [id number]-ku-[id number] left hydronephrosis although decreased. Internal density measurements are somewhat greater than simple fluid up to about 24 to 34 Hounsfield units. There are 3 small calcific foci in the region near the left ureteropelvic junction, largest about 2 mm. There is no ureteral calculus. There is mild strandy change about the proximal left ureter. There is no right hydronephrosis. Evaluation of abdominal visceral organs is limited without intravenous contrast, no obvious focal abnormality of the liver, spleen, pancreas. There has been cholecystectomy. Evaluation of bowel is limited without oral contrast. There is greater degree of retained stool in the right colon. There are some nonspecific air-fluid levels in the nondilated all bowel. There is no free fluid or free air. There is no focal hematoma. There is again left adrenal nodule about 1.6 cm, density measurements of adenoma. There is transitional anatomy of the lumbar spine. There is a larger posterior disc osteophyte complex at what is considered L5-S1 contributing to likely moderate spinal stenosis and right greater than left neural foramina compromise. Impression: 1. No focal retroperitoneal hematoma is identified. There is ntlo-[id number] left hydronephrosis, internal density somewhat complex and there could be component of blood products.. There are 3 small calculi near the left ureteropelvic junction. 2. There is transitional anatomy of the lumbar spine, large posterior disc osteophyte complex at what is considered L5-S1 contributing to moderate spinal stenosis and right greater than left neural foramina compromise. Electronically signed by: Triston Alvarado MD (06/25/2018 11:29 PM) [facility]
[2018-06-25] MEDS ORDERED: HYDR-3164 PO (23:44)
[2018-06-25] MEDS ORDERED: CEPH500C PO (23:44)
[2018-06-25 23:45] VITALS: BP 149/83
[2018-06-25] MEDS ORDERED: fentaNYL PF VIAL 100 MCG/2 ML VIAL IV ONE (23:55)
[2018-06-25] MEDS ORDERED: KETOROLAC 15 MG/ML VIAL. IV ONE (23:55)
== END 2018-06-25 23:55 | disposition home or self-care (01) ==
LOC: ER 22:17
DX: N39.0 Urinary tract infection, site not specified (principal); N13.30 Unspecified hydronephrosis; I10 Essential (primary) hypertension; Z90.89 Acquired absence of other organs; Z90.49 Acquired absence of other specified parts of digestive tract; Z88.4 Allergy status to anesthetic agent; Z88.8 Allergy status to other drugs, medicaments and biological substances
CPT/HCPCS: 36415; 74176; 80053; 81001; 85025; 85610; 87086; 96374; 96375; 99284; J1885; J2270; J2405; J3010; J7030

== ENCOUNTER 2018-07-28 22:11 | Emergency (ER) | payer OTHER ==
[~2018-07-28] VITALS: Ht 182.9 cm; Wt 99.8 kg
[~2018-07-28 22:11] MED LIST changes: +CEPH500C PO
[2018-07-28 22:16] VITALS: BP 139/93
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
[2018-07-28] MEDS ORDERED: NAPR-514 PO (22:52)
[2018-07-28] MEDS ORDERED: IBUPROFEN 400 MG TABLET. PO ONE (23:00)
[2018-07-28] MEDS ORDERED: oxyCODONE IR 5 MG TABLET PO ONE (23:00)
--- NOTE | 2018-07-29 08:57 | RAD ---
3 view study of the right shoulder Clinical indications: Right shoulder pain since Thursday. No known injury. FINDINGS: No acute fracture or dislocation or lytic process is seen. No AC joint separation is evident. IMPRESSION: No acute fracture. Electronically signed by: Von Hernandez MD (07/29/2018 8:55 AM) [facility]
== END 2018-07-28 23:25 | disposition home or self-care (01) ==
LOC: ER 22:11
DX: M25.511 Pain in right shoulder (principal); I10 Essential (primary) hypertension; F32.9 Major depressive disorder, single episode, unspecified; F17.210 Nicotine dependence, cigarettes, uncomplicated; Z88.4 Allergy status to anesthetic agent; Z88.8 Allergy status to other drugs, medicaments and biological substances
CPT/HCPCS: 73030; 99284

== ENCOUNTER 2018-08-11 10:56 | Emergency (ER) | payer OTHER ==
[~2018-08-11] VITALS: Ht 190.5 cm; Wt 99.8 kg
[~2018-08-11 10:56] MED LIST changes: +NAPR-514 PO
[2018-08-11] MEDS ORDERED: NITROGLYCERIN SUBLINGUAL 0.4 MG BOTTLE OF 25. SL PRN (11:15)
[2018-08-11] MEDS ORDERED: ASPIRIN 325 MG TABLET PO ONE (11:15)
--- NOTE | 2018-08-11 11:19 | PHYS DOC ---
Past Medical History Past Medical History: Depression, Hypertension, Other Additional Past Medical Histor: Stent in left ureter Past Surgical History: Appendectomy, Cholecystectomy, Tonsillectomy, Other Additional Past Surgical Histo: RIGHT SHOULDER,BILATERAL KNEES, PYLOPLASTY Alcohol Use: Occasionally Drug Use: None Adult General Chief Complaint Chief Complaint: CHEST PAIN HPI HPI Patient is a 33 year old male with history of hypertension, depression, smoking, presents the ED today complaining of a 7 out of 10 sharp constant left sided chest pain that began on Thursday this week which is 3 days ago. Patient denies anything relieving or exacerbating the pain. He states he tried taking Tylenol with no relief. He states he was seen at [facility] 3 days ago for the same complaint and had a full workup which was negative and he was sent home. He states his symptoms have continued. Review of Systems Review of Systems Constitutional: Denies fever or chills [] Eyes: Denies change in visual acuity, redness, or eye pain [] HENT: Denies nasal congestion or sore throat [] Respiratory: Denies cough or shortness of breath [] Cardiovascular: Reports left-sided chest pain[] GI: Denies abdominal pain, nausea, vomiting, bloody stools or diarrhea [] : Denies dysuria or hematuria [] Musculoskeletal: Denies back pain or joint pain [] Integument: Denies rash or skin lesions [] Neurologic: Denies headache, focal weakness or sensory changes All other systems were reviewed and found to be within normal limits, except as documented in this note. Current Medications Current Medications Current Medications Medications (Trade) Dose Ordered Sig/[facility] Start Time Stop Time Status Last Admin Dose Admin Aspirin (Nereyda Aspirin) 325 mg 1X ONCE 08/11/18 11:15 08/11/18 11:16 DC 08/11/18 11:21 325 MG Nitroglycerin (Nitrostat) 0.4 mg PRN Q5MIN PRN 08/11/18 11:15 Allergies Allergies Allergies Coded Allergies Type Severity Reaction Last Updated Verified prochlorperazine Allergy Mild HIVES RASH 07/28/18 Yes scopolamine Adverse Reaction Severe Photosensitivity 11/01/17 Yes ketamine Adverse Reaction Intermediate Nausea and Vomiting 11/01/17 Yes Physical Exam Physical Exam Constitutional: Well developed, well nourished, no acute distress, non-toxic appearance. [] HENT: Normocephalic, atraumatic, bilateral external ears normal, oropharynx moist, no oral exudates, nose normal. [] Eyes: PERRLA, EOMI, conjunctiva normal, no discharge. [] Neck: Normal range of motion, no tenderness, supple, no stridor. [] Cardiovascular:Heart rate regular rhythm, no murmur [] Lungs & Thorax: Bilateral breath sounds clear to auscultation [] Abdomen: Bowel sounds normal, soft, no tenderness, no masses, no pulsatile masses. [] Skin: Warm, dry, no erythema, no rash. [] Back: No tenderness, no CVA tenderness. [] Extremities: No tenderness, no cyanosis, no clubbing, ROM intact, no edema. [] Neurologic: Alert and oriented X 3, normal motor function, normal sensory function, no focal deficits noted. [] Psychologic: Appears anxious Current Patient Data Vital Signs Vital Signs Date Time Temp Pulse Resp B/P (MAP) Pulse Ox O2 Delivery O2 Flow Rate FiO2 08/11/18 11:03 98.4 91 20 161/80 (107) 95 Room Air 98.4 Lab Values Laboratory Tests Test 08/11/18 11:13 08/11/18 11:26 Urine Collection Type Void Urine Color Yellow Urine Clarity Clear Urine pH 5.5 Urine Specific [place] 1.020 Urine Protein Negative mg/dL (NEG-TRACE) Urine Glucose (UA) Negative mg/dL (NEG) Urine Ketones (Stick) Negative mg/dL (NEG) Urine Blood Negative (NEG) Urine Nitrite Negative (NEG) Urine Bilirubin Negative (NEG) Urine Urobilinogen Dipstick 1.0 mg/dL (0.2 mg/dL) Urine Leukocyte Esterase Negative (NEG) Urine RBC Rare /HPF (0-2) Urine WBC Occ /HPF (0-4) Urine Squamous Epithelial Cells None /LPF Urine Bacteria Few /HPF (0-FEW) Urine Mucus Slight /LPF Urine Opiates Screen Neg (NEG) Urine Methadone Screen Neg (NEG) Urine Barbiturates Neg (NEG) Urine Phencyclidine Screen Neg (NEG) Urine Amphetamine/Methamphetamine Neg (NEG) Urine Benzodiazepines Screen Neg (NEG) Urine Cocaine Screen Neg (NEG) Urine Cannabinoids Screen Neg (NEG) Urine Ethyl Alcohol Neg (NEG) White Blood Count 9.8 x10^3/uL (4.0-11.0) Red Blood Count 5.36 x10^6/uL (4.30-5.70) Hemoglobin 15.9 g/dL (13.0-17.5) Hematocrit 45.3 % (39.0-53.0) Mean Corpuscular Volume 85 fL (79-100) Mean Corpuscular Hemoglobin 30 pg (25-35) Mean Corpuscular Hemoglobin Concent 35 g/dL (31-37) Red Cell Distribution Width 13.6 % (11.5-14.5) Platelet Count 169 x10^3/uL (140-400) Neutrophils (%) (Auto) 73 % (31-73) Lymphocytes (%) (Auto) 18 % (24-48) L Monocytes (%) (Auto) 5 % (0-9) Eosinophils (%) (Auto) 3 % (0-3) Basophils (%) (Auto) 0 % (0-3) Neutrophils # (Auto) 7.2 x10^3uL (1.8-7.7) Lymphocytes # (Auto) 1.7 x10^3/uL (1.0-4.8) Monocytes # (Auto) 0.5 x10^3/uL (0.0-1.1) Eosinophils # (Auto) 0.3 x10^3/uL (0.0-0.7) Basophils # (Auto) 0.0 x10^3/uL (0.0-0.2) D-Dimer (Cristal) < 0.27 ug/mlFEU Sodium Level 137 mmol/L (136-145) Potassium Level 3.9 mmol/L (3.5-5.1) Chloride Level 101 mmol/L (98-107) Carbon Dioxide Level 25 mmol/L (21-32) Anion Gap 11 (6-14) Blood Urea Nitrogen 18 mg/dL (8-26) Creatinine 1.1 mg/dL (0.7-1.3) Estimated GFR (Cockcroft-Gault) 77.6 BUN/Creatinine Ratio 16 (6-20) Glucose Level 118 mg/dL (70-99) H Calcium Level 9.0 mg/dL (8.5-10.1) Magnesium Level 1.9 mg/dL (1.8-2.4) Total Bilirubin 0.5 mg/dL (0.2-1.0) Aspartate Amino Transferase (AST) 13 U/L (15-37) L Alanine Aminotransferase (ALT) 23 U/L (16-63) Alkaline Phosphatase 53 U/L (46-116) Creatine Kinase 71 U/L (39-308) Creatine Kinase MB (Mass) < 0.5 ng/mL (0.0-3.6) Creatine Kinase MB Relative Index % (0-4) Troponin I Quantitative < 0.017 ng/mL (0.000-0.055) CU-Idt-F-Type Natriuretic Peptide 33 pg/mL (0-124) Total Protein 7.3 g/dL (6.4-8.2) Albumin 3.8 g/dL (3.4-5.0) Albumin/Globulin Ratio 1.1 (1.0-1.7) Lipase 63 U/L (73-393) L Thyroid Stimulating Hormone (TSH) 1.017 uIU/mL (0.358-3.74) Laboratory Tests 08/11/18 11:26 Laboratory Tests 08/11/18 11:26 EKG EKG 11:[address] Joseph sinus rhythm, HR 89 no STEMI Radiology/Procedures Radiology/Procedures []PROCEDURE: PORTABLE CHEST 1V Portable chest, 08/11/2018: HISTORY: Chest pain The heart size and pulmonary vascularity are normal. No pulmonary infiltrate is seen. There is no evidence of pleural fluid. IMPRESSION: No acute cardiopulmonary abnormality is detected. Electronically signed by: Thomas Oro MD (08/11/2018 11:21 AM) [facility] DICTATED and SIGNED BY: THOMAS ORO MD DATE: 08/11/181120 Course & Med Decision Making Course & Med Decision Making Pertinent Labs and Imaging studies reviewed. (See chart for details) This is a 33-year-old male patient presenting to the ED today with left-sided chest pain that began 3 days ago. See history of present illness, patient was seen at a different facility 3 days ago, worked up and was sent home with negative results. Has not followed up. Advised to consider smoking cessation EKG is negative, troponin is normal, CBC CMP with no acute findings. Urine drug screen is negative, chest x-ray is negative, d-dimer is normal. Heart score 2 I went to the room to give patient results, found him laying on the right side in no distress. Informed patient his EKG, labs, chest x-ray and all the cardiac workup in the ED is negative. Informed patient i would like him to follow-up with his regional merchandising manager and PCP. Patient states he will not follow up. Offered him to call the regional merchandising manager and get him an outpatient follow-up appointment. He stated "NO". Informed him at this point he can go home and follow up as an outpatient. Informed patient he can take Tylenol/ Motrin for pain. Patient got up into sitting position and grabbed his left side of the chest. Nursing staff had reported patient doing this whenever they walked into the room. Informed patient I did not find any cardiac cause of his pain and he has his own primary care doctor which he should follow up with as well as a regional merchandising manager. Patient started removing his blood pressure cuff forcefully, he removed his O2 sats monitor forcefully. I walked away for safety and informed the RN. He was discharged to home and instructed to follow-up with his PCP and regional merchandising manager. Dragon Disclaimer Dragon Disclaimer This electronic medical record was generated, in whole or in part, using a voice recognition dictation system. Departure Departure Impression: Primary Impression: Chest pain Disposition: HOME, SELF-CARE Condition: STABLE Referrals: ROBIN HAMMONDS MD (PCP) follow up as soon as you can MARNI MILES MD follow up as soon as you can Patient Instructions: Chest Pain (Nonspecific) Additional Instructions: You were evaluated in the ER for chest pain, we did not find any acute cause for your symptoms, we provided you a regional merchandising manager which I had offered to call but you declined. Please contact their office today and set up a follow-up appointment. You can take [id number] pain relievers as needed for pain. Please follow up with your doctor as soon as possible Problem Qualifiers Primary Impression: Chest pain Chest pain type: unspecified Qualified Codes: R07.9 - Chest pain, unspecified JONATHAN BLACKBURN REO ASSET MANAGER August 11, 2018 11:19
--- NOTE | 2018-08-11 11:24 | RAD ---
Portable chest, 08/11/2018: HISTORY: Chest pain The heart size and pulmonary vascularity are normal. No pulmonary infiltrate is seen. There is no evidence of pleural fluid. IMPRESSION: No acute cardiopulmonary abnormality is detected. Electronically signed by: Thomas Oro MD (08/11/2018 11:21 AM) [facility]
[2018-08-11 11:28] LABS: BILIRUBIN,URINE NEGATIVE (NEG); CLARITY,URINE CLEAR; COLOR,URINE YELLOW; NITRITE,URINE NEGATIVE (NEG); PH,URINE 5.5; PROTEIN,URINE NEGATIVE (NEG-TRACE)
[2018-08-11 11:35] LABS: BASO % 0 % (0-3); EOS # 0.3 x10^3/uL (0.0-0.7); EOS % 3 % (0-3); HEMATOCRIT 45.3 % (39.0-53.0); HEMOGLOBIN 15.9 g/dL (13.0-17.5); LYMPH # 1.7 x10^3/uL (1.0-4.8); LYMPH % 18 % (24-48); MEAN CORPUSCULAR HEMOGLOBIN 30 pg (25-35); MEAN CORPUSCULAR HGB CONC 35 g/dL (31-37); MEAN CORPUSCULAR VOLUME 85 fL (79-100); MONO # 0.5 x10^3/uL (0.0-1.1); MONO % 5 % (0-9); NEUT # 7.2 x10^3uL (1.8-7.7); NEUT % 73 % (31-73); PLATELET COUNT 169 x10^3/uL (140-400); RED BLOOD COUNT 5.36 x10^6/uL (4.30-5.70); RED CELL DISTRIBUTION WIDTH 13.6 % (11.5-14.5); WHITE BLOOD COUNT 9.8 x10^3/uL (4.0-11.0)
[2018-08-11 11:43] LABS: BACTERIA,URINE FEW /HPF (0-FEW); RBC,URINE RARE /HPF (0-2); WBC,URINE OCC /HPF (0-4)
[2018-08-11 11:50] LABS: CREATININE 1.1 mg/dL (0.7-1.3); GFR 77.6; POTASSIUM 3.9 mmol/L (3.5-5.1)
[2018-08-11 11:55] LABS: ALBUMIN 3.8 g/dL (3.4-5.0); ALBUMIN/GLOBULIN RATIO 1.1 (1.0-1.7); MAGNESIUM 1.9 mg/dL (1.8-2.4); TOTAL BILIRUBIN 0.5 mg/dL (0.2-1.0); TOTAL PROTEIN 7.3 g/dL (6.4-8.2)
[2018-08-11 12:03] LABS: CREATINE KINASE 71 U/L (39-308)
[2018-08-11 12:08] LABS: AMPHETAMINE/METHAMPHETAMINE NEG (NEG); BARBITURATES NEG (NEG); BENZODIAZEPINES NEG (NEG); CANNABINOIDS NEG (NEG); COCAINE NEG (NEG); METHADONE NEG (NEG); OPIATES NEG (NEG); PHENCYCLIDINE NEG (NEG)
--- NOTE | 2018-08-11 12:19 | EKG ---
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
[2018-08-11 12:32] VITALS: BP 121/65
== END 2018-08-11 13:09 | disposition home or self-care (01) ==
LOC: ER 10:56
DX: R07.89 Other chest pain (principal); I10 Essential (primary) hypertension; F17.200 Nicotine dependence, unspecified, uncomplicated; Z88.4 Allergy status to anesthetic agent; Z88.8 Allergy status to other drugs, medicaments and biological substances
CPT/HCPCS: 36415; 71045; 80053; 80307; 81001; 82553; 83690; 83735; 83880; 84443; 84484; 85025; 85379; 93005; 99285-25